=== PATIENT | female | born 1990 | race Caucasian/White ===

== ENCOUNTER 2018-06-27 15:11 | Emergency (ER) | payer MEDICAID, OTHER ==
[~2018-06-27] VITALS: Wt 90.0 kg
[2018-06-27 15:15] VITALS: BP 133/76; PULSE 81; RESP 18
[2018-06-27] MEDS ORDERED: ACETAMINOPHEN 325 MG TAB PO STA (15:30)
--- NOTE | 2018-06-27 16:17 | ERD ---
ER Documentation Chief Complaint Chief Complaint 5 WEEKS PREGNAT WITH PELVIC PAIN HPI 27-year-old female with no significant past medical history presenting to the emergency department complaining of intermittent vaginal bleeding for the past 5 days. She is G4, . Last menstrual cycle of 05/23/2018. She is been using approximately 2 pads per hour today. She reports left sided pelvic pain which is rated 10/10 in severity and constant. She tried no medication for relief of symptoms. She has not yet had an ultrasound during this . She denies any fevers, chills, dysuria, upper abdominal pain, or other symptoms at this time. ROS All systems reviewed and are negative except as per history of present illness. Medications Home Meds No Active Prescriptions or Reported Meds Allergies Allergies: Coded Allergies: No Known Allergy (Unverified , 06/27/18) PMhx/Soc History of Surgery: Yes (,CHOLECYSTECTOMY,APPENDECTOMY) Anesthesia Reaction: No Hx Neurological Disorder: No Hx Respiratory Disorders: No Hx Cardiac Disorders: No Hx Psychiatric Problems: No Hx Miscellaneous Medical Probl: No (NO KNOWN MEDICAL CONDITION) Hx Alcohol Use: No Hx Substance Use: No Hx Tobacco Use: No Smoking Status: Never smoker FmHx Family History: No diabetes Physical Exam Vitals Vital Signs Date Temp Pulse Resp B/P (MAP) Pulse Ox O2 O2 Flow FiO2 Time Delivery Rate 06/27/18 98.7 81 18 133/76 99 15:15 (95) Physical Exam Const: No acute distress Head: Atraumatic Eyes: Normal Conjunctiva ENT: Normal External Ears, Nose and Mouth. Neck: Full range of motion. No meningismus. Resp: Clear to auscultation bilaterally Cardio: Regular rate and rhythm, no murmurs Abd: Soft, non tender, non distended. Normal bowel sounds. No rebound tenderness or guarding. Tenderness palpation of the pelvic region on the left. Skin: No petechiae or rashes Back: No midline or flank tenderness Ext: No cyanosis, or edema Neur: Awake and alert Psych: Normal Mood and Affect Result Diagram: 06/27/18 1545 Results 24 hrs Laboratory Tests Test 06/27/18 15:45 White Blood Count 6.2 10^3/ul Red Blood Count 4.55 10^6/ul Hemoglobin 13.5 g/dl Hematocrit 39.8 % Mean Corpuscular Volume 87.5 fl Mean Corpuscular Hemoglobin 29.7 pg Mean Corpuscular Hemoglobin Concent 33.9 g/dl Red Cell Distribution Width 13.1 % Platelet Count 268 10^3/UL Mean Platelet Volume 10.7 fl Immature Granulocytes % 0.300 % Neutrophils % 62.7 % Lymphocytes % 26.7 % Monocytes % 9.5 % Eosinophils % 0.3 % Basophils % 0.5 % Nucleated Red Blood Cells % 0.0 /100WBC Immature Granulocytes # 0.020 10^3/ul Neutrophils # 3.9 10^3/ul Lymphocytes # 1.7 10^3/ul Monocytes # 0.6 10^3/ul Eosinophils # 0.0 10^3/ul Basophils # 0.0 10^3/ul Nucleated Red Blood Cells # 0.0 10^3/ul Urine Color YELLOW Urine Clarity CLOUDY Urine pH 7.0 Urine Specific [place] 1.024 Urine Ketones NEGATIVE mg/dL Urine Nitrite NEGATIVE mg/dL Urine Bilirubin NEGATIVE mg/dL Urine Urobilinogen NEGATIVE mg/dL Urine Leukocyte Esterase NEGATIVE [place]/ul Urine Microscopic RBC 1 /HPF Urine Microscopic WBC 3 /HPF Urine Squamous Epithelial Cells MODERATE /HPF Urine Bacteria FEW /HPF Urine Mucus MODERATE /HPF Urine Hemoglobin 3+ mg/dL Urine Glucose NEGATIVE mg/dL Urine Total Protein NEGATIVE mg/dl Beta HCG, Quantitative 76.3 mIU/ml Current Medications Medications Dose Sig/Gregg Start Time Status Last (Trade) Ordered Route PRN Stop Time Admin Dose Reason Admin 650 mg ONCE STAT 06/27/18 DC 06/27/18 Acetaminophen PO 15:30 15:38 (Tylenol 06/27/18 15:31 Tab) [place] [id number] Radiology Main Line: [phone] DIAGNOSTIC IMAGING REPORT Patient: LEESA BETTS : 1990 Age: 27 Sex: F MR #: [id number] DOS: 06/27/18 1530 Ordering MD: LYNSEY HIGH PA-C Location: [facility] Room/Bed: PROCEDURE: US Pelvis. CLINICAL INDICATION: vaginal bleeding TECHNIQUE: Multiple sonographic images of the pelvis were obtained utilizing a transabdominal technique. The images were reviewed on a PACS workstation. COMPARISON: None. FINDINGS: The uterus is normal in size and demonstrates a normal appearance of the moni metrium. The uterus measures 8 x 5 of 5.2 x 6.6 cm in size. The endometrial stripe is heterogeneous in appearance and has the thickness of 8 mm. No intrauterine gestation is noted. The ovaries are normal in size and echogenicity. Normal Doppler flow is identified in both ovaries. The right ovary measures 2.6 x 2.3 x 2.8 cm. The left ovary measures 3.6 x 2.4 x 3.7 cm. No free fluid is present within the pelvis.. RPTAT: AA IMPRESSION: No intrauterine gestation visualized. Differential diagnosis includes early , missed or ectopic . Follow-up ultrasound and HCG levels is recommended. .Neal Payne MD, Date Time Electronically viewed and signed by .Neal Payne MD, on 06/27/2018 16:31 .S/ CC: LYNSEY HIGH PA-C [id number] Procedures/MDM 27-year-old female presenting to the emergency department complaints of pelvic pain and vaginal bleeding. She is reportedly 5 weeks . Quantitative hCG is 76. Patient is a low positive. Urinalysis showed [no leukocytes, nitrites or glucose]. Pelvic ultrasound shows no evidence of intrauterine . Differential includes early , missed or ectopic . No adnexal masses appreciated. Patient presents with []. No suspicion for ectopic at this time as beta hCG is well below the transition zone. Pain is improved while in the department. Patient will be discharged home with instructions on the importance of a 2 day follow-up. Signs and symptoms do not suggest endometritis or septic . Patient return sooner for fevers, vomiting, shortness of breath or chest pain. Signs and symptoms do not suggest appendicitis, acute abdomen but patient should recheck as directed. Departure Diagnosis: Primary Impression: Pelvic pain complicating Trimester: first trimester Qualified Codes: O26.891 - Other specified related conditions, first trimester; R10.2 - Pelvic and perineal pain Condition: Fair LYNSEY HIGH-C June 27, 2018 16:17
== END 2018-06-27 18:02 | disposition home or self-care (01) ==
LOC: FTE 15:11
DX: O26.891 Other specified pregnancy related conditions, first trimester (principal); R10.2 Pelvic and perineal pain; Z3A.01 Less than 8 weeks gestation of pregnancy
CPT/HCPCS: 76801; 81001; 84702; 85025; 86900; 86901; Z7502; Z7610